=== PATIENT | female | born 1985 | race Two or more races ===

== ENCOUNTER 2017-03-21 12:58 | Emergency (ER) | payer MEDICAID ==
[2017-03-21 14:42] VITALS: BP 136/90
[2017-03-21] MEDS ORDERED: methylPREDNISolone SOD SUCC 125 MG/2 ML VL IM ONE (15:00)
[2017-03-21] MEDS ORDERED: cefTRIAXone SOD 1,000 MG VL IM ONE (15:00)
== END 2017-03-21 15:05 | disposition home or self-care (01) ==
LOC: ER 12:58
DX: J03.90 Acute tonsillitis, unspecified (principal); F12.10 Cannabis abuse, uncomplicated; E07.9 Disorder of thyroid, unspecified; Z79.899 Other long term (current) drug therapy
CPT/HCPCS: 96372; 99284; J0696; J2930

== ENCOUNTER 2017-06-14 00:38 | Emergency (ER) | payer MEDICAID ==
[~2017-06-14] VITALS: Ht 162.6 cm; Wt 82.6 kg
[2017-06-14 01:01] VITALS: BP 121/86
[2017-06-14] MEDS ORDERED: cefTRIAXone SOD 1,000 MG VL IM ONE (03:00)
[2017-06-14] MEDS ORDERED: methylPREDNISolone SOD SUCC 125 MG/2 ML VL IM ONE (03:00)
== END 2017-06-14 03:56 | disposition home or self-care (01) ==
LOC: ER 00:40
DX: J03.90 Acute tonsillitis, unspecified (principal); I10 Essential (primary) hypertension; Z88.6 Allergy status to analgesic agent; Z88.8 Allergy status to other drugs, medicaments and biological substances
CPT/HCPCS: 87070; 87880; 96372; 99284; J0696; J2930

== ENCOUNTER 2017-12-24 10:32 | Emergency (ER) | payer MEDICAID ==
[~2017-12-24] VITALS: Ht 162.6 cm; Wt 84.1 kg
[2017-12-24 10:43] VITALS: BP 119/77
== END 2017-12-24 11:50 | disposition home or self-care (01) ==
LOC: ER 10:32
DX: S66.912A Strain of unspecified muscle, fascia and tendon at wrist and hand level, left hand, initial encounter (principal); I10 Essential (primary) hypertension; E07.9 Disorder of thyroid, unspecified; W23.0XXA Caught, crushed, jammed, or pinched between moving objects, initial encounter; Y93.89 Activity, other specified; Y92.89 Other specified places as the place of occurrence of the external cause; Y99.8 Other external cause status; Z88.6 Allergy status to analgesic agent; Z88.8 Allergy status to other drugs, medicaments and biological substances; Z90.49 Acquired absence of other specified parts of digestive tract
CPT/HCPCS: 29125; 73130

== ENCOUNTER 2018-09-03 04:10 | Emergency (ER) | payer MEDICAID ==
[~2018-09-03] VITALS: Ht 162.6 cm; Wt 72.6 kg
[2018-09-03 04:31] VITALS: BP 125/75
[2018-09-03] MEDS ORDERED: KETOROLAC TROMETH 60MG/2ML VIAL IM ONE (07:00)
== END 2018-09-03 07:32 | disposition home or self-care (01) ==
LOC: ER 04:10
DX: S60.222A Contusion of left hand, initial encounter (principal); I10 Essential (primary) hypertension; E07.9 Disorder of thyroid, unspecified; F12.90 Cannabis use, unspecified, uncomplicated; Z88.8 Allergy status to other drugs, medicaments and biological substances; Z90.49 Acquired absence of other specified parts of digestive tract; W01.0XXA Fall on same level from slipping, tripping and stumbling without subsequent striking against object, initial encounter; Y93.89 Activity, other specified; Y99.8 Other external cause status; Y92.59 Other trade areas as the place of occurrence of the external cause
CPT/HCPCS: 73130; 96372; 99283; J1885

== ENCOUNTER 2019-05-09 00:20 | Emergency (ER) | payer MEDICAID ==
[~2019-05-09] VITALS: Ht 162.6 cm; Wt 86.4 kg
[2019-05-09 01:27] VITALS: BP 128/86
[2019-05-09] MEDS ORDERED: DexAMETHasone SOD PHOS 10MG/1ML VIAL INJ IM ONE (01:30)
[2019-05-09] MEDS ORDERED: cefTRIAXone SOD 1,000 MG VL IM ONE (01:30)
[2019-05-09] MEDS ORDERED: ACETAMINOPHEN/CODEINE#3 (300/30mg) TAB PO ONE (01:30)
== END 2019-05-09 02:21 | disposition home or self-care (01) ==
LOC: ER 00:24
DX: J06.9 Acute upper respiratory infection, unspecified (principal); F12.10 Cannabis abuse, uncomplicated; Z88.6 Allergy status to analgesic agent
CPT/HCPCS: 96372; 99283; J0696; J1100

== ENCOUNTER → 2019-12-31 | Emergency (ER) | payer MEDICAID ==
[~2019-12-31] VITALS: Ht 157.5 cm; Wt 86.2 kg
[2019-12-31 00:55] LABS: Basophils # (auto) 0.1 10 ^3/uL (0-0.2); Eosinophils # (auto) 0.1 10 ^3/uL (0-0.8); Lymphocytes # (auto) 3.8 10 ^3/uL (0.4-5.4)
[2019-12-31 00:57] LABS: Basophils % (auto) 0.9 % (0.0-2.0); Eosinophils % (auto) 1.6 % (0.0-7.0); Hematocrit 37.7 % (36.0-46.0); Hemoglobin 12.2 g/dL (12.2-16.2); Lymphocytes % (auto) 45.8 % (10.0-50.0); Mean Corpuscular Hemoglobin 26.5 pg (28.0-32.0); Mean Corpuscular Hgb Conc. 32.3 g/dL (32.0-36.0); Monocytes # (auto) 0.7 10 ^3/uL (0-1.3); Monocytes % (auto) 7.9 % (0.0-12.0); Neutrophils # (auto) 3.6 10 ^3/uL (1.6-8.6); Neutrophils % (auto) 43.8 % (37.0-80.0); Platelet Count (auto) 291 10^3/uL (140-450); Red Blood Cells 4.59 10^6/uL (4.0-5.20); White Blood Cell 8.3 10^3/uL (4.4-10.8)
[2019-12-31 01:10] LABS: INR 1.01 (0.9-1.15); Partial Thromboplastin Time 29.1 sec (23.64-32.05)
[2019-12-31 01:16] LABS: Alanine Aminotransferase 21 U/L (13-56); Albumin 3.7 g/dL (3.4-5.0); Anion Gap 7 (5-15); Aspartate Aminotransferase 15 U/L (15-37); BUN/Creatinine Ratio 21.4; Blood Urea Nitrogen 15 mg/dL (7-18); Calcium 8.7 mg/dL (8.5-10.1); Carbon Dioxide 24 mmol/L (21-32); Chloride 108 mmol/L (98-107); GFR African American 125 mL/min; GFR Non-African American 103 mL/min; Glucose 97 mg/dL (74-106); Potassium 3.7 mmol/L (3.5-5.1); Sodium 139 mmol/L (136-145)
[2019-12-31 01:33] LABS: Alkaline Phosphatase 99 U/L (45-117); Bilirubin, Total 0.1 mg/dL (0.2-1.0); Total Protein 7.7 g/dL (6.4-8.2)
[2019-12-31 02:50] VITALS: BP 120/81
== END | disposition home or self-care (01) ==
LOC: ER 00:17
DX: R07.89 Other chest pain (principal); K21.9 Gastro-esophageal reflux disease without esophagitis; I10 Essential (primary) hypertension; Z90.49 Acquired absence of other specified parts of digestive tract; Z88.8 Allergy status to other drugs, medicaments and biological substances
CPT/HCPCS: 36415; 71045; 80053; 83735; 83880; 84443; 84484; 84702; 85025; 85379; 85610; 85730; 93005

== ENCOUNTER 2020-03-09 09:14 | Emergency (ER) | payer MEDICAID ==
[~2020-03-09] VITALS: Ht 162.6 cm; Wt 88.5 kg
[2020-03-09] MEDS ORDERED: PANTOPRAZOLE 40 MG TAB PO ONE (09:30)
[2020-03-09 09:36] LABS: Basophils # (auto) 0.1 10 ^3/uL (0-0.2); Eosinophils # (auto) 0.1 10 ^3/uL (0-0.8); Hemoglobin 12.7 g/dL (12.2-16.2); Monocytes # (auto) 0.4 10 ^3/uL (0-1.3); Neutrophils # (auto) 4.8 10 ^3/uL (1.6-8.6); Nucleated Red Blood Cells % 0.1 %; Red Cell Distribution Width 16.3 % (11.8-14.3)
[2020-03-09 09:38] LABS: Eosinophils % (auto) 1.8 % (0.0-7.0); Hematocrit 39.1 % (36.0-46.0); Lymphocytes # (auto) 2.9 10 ^3/uL (0.4-5.4); Lymphocytes % (auto) 35.3 % (10.0-50.0); Mean Corpuscular Hemoglobin 26.6 pg (28.0-32.0); Mean Corpuscular Hgb Conc. 32.5 g/dL (32.0-36.0); Mean Corpuscular Volume 81.9 fL (80.0-100.0); Monocytes % (auto) 4.8 % (0.0-12.0); Neutrophils % (auto) 57.1 % (37.0-80.0); Platelet Count (auto) 344 10^3/uL (140-450); Red Blood Cells 4.77 10^6/uL (4.0-5.20); White Blood Cell 8.3 10^3/uL (4.4-10.8)
[2020-03-09 09:58] LABS: Albumin 4.2 g/dL (3.4-5.0); Calcium 9.3 mg/dL (8.5-10.1); Potassium 3.6 mmol/L (3.5-5.1)
[2020-03-09 10:04] LABS: BUN/Creatinine Ratio 15.7; Bilirubin, Total 0.2 mg/dL (0.2-1.0)
[2020-03-09 10:53] LABS: Urine Bacteria NONE SEEN /hpf (None Seen); Urine Blood 2+ /uL (Negative); Urine Mucus FEW (None Seen); Urine Specific Gravity 1.025 (1.001-1.035); Urine WBC 1 /hpf (0 - 5)
[2020-03-09 11:48] VITALS: BP 127/85
== END 2020-03-09 11:49 | disposition home or self-care (01) ==
LOC: ER 09:14
DX: K29.70 Gastritis, unspecified, without bleeding (principal); I10 Essential (primary) hypertension
CPT/HCPCS: 36415; 74176; 80053; 81001; 83690; 85025

== ENCOUNTER 2020-10-22 15:23 | Emergency (ER) | payer MEDICAID ==
[~2020-10-22] VITALS: Ht 154.9 cm; Wt 86.6 kg
[2020-10-22 15:29] VITALS: BP 136/76
[2020-10-22] MEDS ORDERED: IBUPROFEN 800 MG TAB PO ONE (16:45)
[2020-10-22] MEDS ORDERED: SILVER SULFADIAZINE 1 % TOPICAL CREAM 50GM TOP ONE (16:45)
== END 2020-10-22 17:27 | disposition home or self-care (01) ==
LOC: ER 15:23
DX: T24.212A Burn of second degree of left thigh, initial encounter (principal); I10 Essential (primary) hypertension; F12.10 Cannabis abuse, uncomplicated; Z87.440 Personal history of urinary (tract) infections; X12.XXXA Contact with other hot fluids, initial encounter; Y93.89 Activity, other specified; Y92.89 Other specified places as the place of occurrence of the external cause; Y99.8 Other external cause status
CPT/HCPCS: 16020

== ENCOUNTER 2022-07-31 09:55 | Emergency (ER) | payer MEDICAID ==
[~2022-07-31] VITALS: Ht 162.6 cm; Wt 86.3 kg
[2022-07-31 13:26] VITALS: BP 133/64
[2022-07-31] MEDS ORDERED: PROM1SOL4 PO (13:45)
[2022-07-31] MEDS ORDERED: ALBU108A5 IN (13:45)
[2022-07-31] MEDS ORDERED: MONT-8 PO (13:45)
[2022-07-31] MEDS ORDERED: IBUP600T28 PO (13:45)
== END 2022-07-31 13:51 | disposition home or self-care (01) ==
LOC: ER 09:55
DX: B34.9 Viral infection, unspecified (principal); I10 Essential (primary) hypertension; Z90.49 Acquired absence of other specified parts of digestive tract; Z88.8 Allergy status to other drugs, medicaments and biological substances; Z20.822 Contact with and (suspected) exposure to COVID-19
CPT/HCPCS: 36415; 87426; 87804

== ENCOUNTER 2023-04-14 12:21 | Emergency (ER) | payer MEDICAID ==
[~2023-04-14] VITALS: Ht 160 cm; Wt 81.8 kg
[~2023-04-14 12:21] MED LIST: ALBU108A5 IN; IBUP1TAB5 PO; MONT-8 PO; PROM1SOL4 PO
[2023-04-14 12:27] VITALS: BP 143/83; PULSE 98; RESP 18; O2SAT 98
[2023-04-14] MEDS ORDERED: IBUP-1454 PO (13:05)
[2023-04-14] MEDS ORDERED: AZIT500T66 PO (13:05)
== END 2023-04-14 13:19 | disposition home or self-care (01) ==
LOC: ER 12:21
DX: J03.90 Acute tonsillitis, unspecified (principal); I10 Essential (primary) hypertension; Z90.49 Acquired absence of other specified parts of digestive tract; Z79.1 Long term (current) use of non-steroidal anti-inflammatories (NSAID); Z79.2 Long term (current) use of antibiotics; Z79.899 Other long term (current) drug therapy; Z88.8 Allergy status to other drugs, medicaments and biological substances

== ENCOUNTER 2023-06-06 17:11 | Emergency (ER) | payer MEDICAID ==
[~2023-06-06] VITALS: Ht 162.6 cm; Wt 85.7 kg
[~2023-06-06 17:11] MED LIST changes: +AZIT500T66 PO; +IBUP-1454 PO
[2023-06-06 18:59] VITALS: BP 143/71; PULSE 93; RESP 18; TEMP 98.3; O2SAT 100
[2023-06-06] MEDS ORDERED: KETOROLAC TROMETH 30 MG/ML 1ML VIAL IM ONE (19:15)
[2023-06-06] MEDS ORDERED: IBUP-1455 PO (22:10)
== END 2023-06-06 22:31 | disposition home or self-care (01) ==
LOC: ER 17:11
DX: M79.662 Pain in left lower leg (principal); Z90.49 Acquired absence of other specified parts of digestive tract; Z98.890 Other specified postprocedural states; Z88.8 Allergy status to other drugs, medicaments and biological substances; Z79.1 Long term (current) use of non-steroidal anti-inflammatories (NSAID); Z79.899 Other long term (current) drug therapy; X58.XXXA Exposure to other specified factors, initial encounter; Y93.43 Activity, gymnastics; Y92.89 Other specified places as the place of occurrence of the external cause; Y99.8 Other external cause status
CPT/HCPCS: 73590; 96372; 99283; J1885

== ENCOUNTER 2023-11-06 14:29 | Emergency (ER) | payer MEDICAID ==
[~2023-11-06] VITALS: Ht 162.6 cm; Wt 81.8 kg
[~2023-11-06 14:29] MED LIST changes: +IBUP-1455 PO
[2023-11-06] MEDS ORDERED: NAP500T PO (15:48)
[2023-11-06 16:07] VITALS: BP 122/72; PULSE 80; RESP 16; TEMP 98.2; O2SAT 98
== END 2023-11-06 16:07 | disposition home or self-care (01) ==
LOC: ER 14:29
DX: S93.401A Sprain of unspecified ligament of right ankle, initial encounter (principal); Z88.6 Allergy status to analgesic agent; X50.1XXA Overexertion from prolonged static or awkward postures, initial encounter; Y93.89 Activity, other specified; Y92.89 Other specified places as the place of occurrence of the external cause; Y99.8 Other external cause status
CPT/HCPCS: 73610

== ENCOUNTER 2024-01-26 15:48 | Emergency (ER) | payer MEDICAID ==
[~2024-01-26] VITALS: Ht 162.6 cm; Wt 85.9 kg
[~2024-01-26 15:48] MED LIST changes: +NAP500T PO
[2024-01-26 17:05] LABS: Urine Bacteria None Seen /hpf (None Seen)
[2024-01-26 17:24] LABS: Urine Blood 3+ /uL (Negative); Urine Clarity Turbid (Clear); Urine Color Colorless (Yellow); Urine Mucus FEW (None Seen); Urine Protein, UAD TRACE (Negative); Urine Specific Gravity 1.018 (1.001-1.035); Urine Urobilinogen Normal (Negative); Urine WBC 27 /hpf (0 - 5); Urine pH 5.5 (5.0-9.0)
[2024-01-26 17:26] LABS: Basophils # (auto) 0 10 ^3/uL (0-0.2); Basophils % (auto) 0.2 % (0.0-2.0); Eosinophils # (auto) 0 10 ^3/uL (0-0.8); Eosinophils % (auto) 0.1 % (0.0-7.0); Hemoglobin 8.2 g/dL (12.2-16.2); Lymphocytes # (auto) 2.3 10 ^3/uL (0.4-5.4); Mean Corpuscular Volume 71.5 fL (80.0-100.0); Neutrophils % (auto) 73.9 % (37.0-80.0)
[2024-01-26 17:27] LABS: Hematocrit 27.5 % (36.0-46.0); Lymphocytes % (auto) 18.1 % (10.0-50.0); Mean Corpuscular Hemoglobin 21.3 pg (28.0-32.0); Mean Corpuscular Hgb Conc. 29.8 g/dL (32.0-36.0); Monocytes % (auto) 7.7 % (0.0-12.0); Neutrophils # (auto) 9.5 10 ^3/uL (1.6-8.6); Red Blood Cells 3.85 10^6/uL (4.0-5.20); Red Cell Distribution Width 17.5 % (11.8-14.3); White Blood Cell 12.8 10^3/uL (4.4-10.8)
[2024-01-26] MEDS: HYDROcodone-ACET 10/325MG TAB PO ONE (17:31)
[2024-01-26 17:32] LABS: Chloride 107 mmol/L (98-107); Potassium 3.3 mmol/L (3.5-5.1); Sodium 139 mmol/L (136-145)
[2024-01-26 17:33] LABS: Anion Gap 8 (5-15); Carbon Dioxide 24 mmol/L (20-30)
[2024-01-26 17:34] LABS: Calcium 8.8 mg/dL (8.7-10.4)
[2024-01-26 17:38] LABS: BUN/Creatinine Ratio 11.5 (10.0-20.0); Blood Urea Nitrogen 9 mg/dL (9-23); Glucose 98 mg/dL (74-106)
[2024-01-26] MEDS ORDERED: HYDR-4902 PO (18:59)
[2024-01-26 19:07] VITALS: BP 134/87; PULSE 86; RESP 17; TEMP 98.9; O2SAT 99
== END 2024-01-26 19:11 | disposition home or self-care (01) ==
LOC: ER 15:48
DX: G89.18 Other acute postprocedural pain (principal); R10.9 Unspecified abdominal pain; N39.0 Urinary tract infection, site not specified; D64.9 Anemia, unspecified; R50.9 Fever, unspecified; E66.01 Morbid (severe) obesity due to excess calories; Z68.32 Body mass index [BMI] 32.0-32.9, adult; Z98.890 Other specified postprocedural states
CPT/HCPCS: 36415; 80048; 81001; 81025; 85025

== ENCOUNTER 2024-02-11 07:11 | Inpatient (IN) | payer MEDICAID ==
[~2024-02-11] VITALS: Ht 162.6 cm; Wt 82.5 kg
[~2024-02-11 07:11] MED LIST changes: +HYDR-4902 PO
[2024-02-11 07:31] LABS: Urine Bacteria None Seen /hpf (None Seen)
[2024-02-11 07:42] LABS: Basophils # (auto) 0.1 10 ^3/uL (0-0.2); Eosinophils # (auto) 0.2 10 ^3/uL (0-0.8); Hemoglobin 8.4 g/dL (12.2-16.2); Monocytes # (auto) 0.4 10 ^3/uL (0-1.3); Nucleated Red Blood Cells % 0.1 %
[2024-02-11 07:43] LABS: Basophils % (auto) 0.7 % (0.0-2.0); Eosinophils % (auto) 2.5 % (0.0-7.0); Hematocrit 28.1 % (36.0-46.0); Lymphocytes # (auto) 2.4 10 ^3/uL (0.4-5.4); Lymphocytes % (auto) 34.5 % (10.0-50.0); Mean Corpuscular Hemoglobin 21.4 pg (28.0-32.0); Mean Corpuscular Volume 71.2 fL (80.0-100.0); Monocytes % (auto) 5.8 % (0.0-12.0); Neutrophils # (auto) 3.9 10 ^3/uL (1.6-8.6); Neutrophils % (auto) 56.5 % (37.0-80.0); Red Blood Cells 3.94 10^6/uL (4.0-5.20); Red Cell Distribution Width 16.6 % (11.8-14.3)
[2024-02-11 07:44] LABS: Urine Blood 2+ /uL (Negative); Urine Clarity Clear (Clear); Urine Color Light-Yellow (Yellow); Urine Mucus FEW (None Seen); Urine Protein, UAD Negative (Negative); Urine Specific Gravity 1.026 (1.001-1.035); Urine Urobilinogen Normal (Negative); Urine WBC 1 /hpf (0 - 5); Urine pH 5.5 (5.0-9.0)
[2024-02-11] MEDS: SODIUM CHLORIDE 0.9% 1,000 ML IV ONE (07:44)
[2024-02-11 07:52] LABS: Chloride 109 mmol/L (98-107); Potassium 3.3 mmol/L (3.5-5.1); Sodium 139 mmol/L (136-145)
[2024-02-11 07:53] LABS: Anion Gap 6 (5-15); Carbon Dioxide 24 mmol/L (20-30)
[2024-02-11 07:54] LABS: Calcium 9.3 mg/dL (8.5-10.1)
[2024-02-11 07:58] LABS: BUN/Creatinine Ratio 24.2 (10.0-20.0); Blood Urea Nitrogen 15 mg/dL (9-23); Glucose 103 mg/dL (74-106)
[2024-02-11] MEDS: KETOROLAC TROMETH 30 MG/ML 1ML VIAL IV ONE (08:21)
[2024-02-11] MEDS: POTASSIUM EFFERVESENT TAB 25 MEQ PO ONE (08:38)
[2024-02-11] MEDS ORDERED: ACETAMINOPHEN 325 MG TAB PO PRN ×2 (11:30)
[2024-02-11] MEDS: SODIUM CHLORIDE 0.9% 1,000 ML IV SCH (12:18)
[2024-02-11 12:28] VITALS: PULSE 88; RESP 16; O2SAT 99
[2024-02-11] MEDS: HYDROcodone-ACET 5/325MG TAB PO PRN (15:37)
[2024-02-11] MEDS: MORPHINE SULFATE INJ 2 MG/ml SYRG IV PRN (17:05)
[2024-02-11 18:30] VITALS: RESP 18
[2024-02-11 18:31] VITALS: BP 126/83; PULSE 80; RESP 18; TEMP 98.2
[2024-02-11 21:00] VITALS: BP 122/51; PULSE 75; RESP 18; TEMP 98.1; O2SAT 98
[2024-02-12] VITALS (8 sets, daily range): BP systolic 99–125; BP diastolic 54–85; PULSE 60–83; RESP 18–20; TEMP 97.9–98.6; O2SAT 97–100
[2024-02-12 06:38] LABS: Eosinophils # (auto) 0.2 10 ^3/uL (0-0.8); Mean Corpuscular Volume 70.1 fL (80.0-100.0); Monocytes # (auto) 0.4 10 ^3/uL (0-1.3); Neutrophils # (auto) 3.6 10 ^3/uL (1.6-8.6); White Blood Cell 6.5 10^3/uL (4.4-10.8)
[2024-02-12 06:43] LABS: Basophils # (auto) 0 10 ^3/uL (0-0.2); Basophils % (auto) 0.7 % (0.0-2.0); Eosinophils % (auto) 3.1 % (0.0-7.0); Hematocrit 25.5 % (36.0-46.0); Hemoglobin 7.8 g/dL (12.2-16.2); Lymphocytes # (auto) 2.3 10 ^3/uL (0.4-5.4); Lymphocytes % (auto) 34.7 % (10.0-50.0); Mean Corpuscular Hemoglobin 21.5 pg (28.0-32.0); Mean Corpuscular Hgb Conc. 30.7 g/dL (32.0-36.0); Monocytes % (auto) 6.1 % (0.0-12.0); Neutrophils % (auto) 55.4 % (37.0-80.0); Red Blood Cells 3.64 10^6/uL (4.0-5.20)
[2024-02-12 06:46] LABS: Chloride 112 mmol/L (98-107); Potassium 3.6 mmol/L (3.5-5.1); Sodium 139 mmol/L (136-145)
[2024-02-12 06:47] LABS: Anion Gap 6 (5-15); Carbon Dioxide 21 mmol/L (20-30)
[2024-02-12 06:52] LABS: BUN/Creatinine Ratio 15.5 (10.0-20.0); Blood Urea Nitrogen 9 mg/dL (9-23); Glucose 91 mg/dL (74-106)
[2024-02-12] MEDS: ONDANSETRON HCL 4 MG/2 ML VIAL IV PRN (11:09)
[2024-02-13 01:00] VITALS: BP 100/62; PULSE 71; RESP 20; TEMP 98.5; O2SAT 100
[2024-02-13 05:00] VITALS: BP 123/80; PULSE 77; RESP 20; TEMP 98.4; O2SAT 98
[2024-02-13 08:00] VITALS: BP 121/70; PULSE 68; RESP 18; TEMP 98.1; O2SAT 98
[2024-02-13] MEDS ORDERED: METH-1181 PO (08:53)
[2024-02-13] MEDS ORDERED: CIPR-173 PO (08:53)
[2024-02-13 09:00] VITALS: BP 121/70; PULSE 68; RESP 18; TEMP 98.1; O2SAT 98
[2024-02-13 11:43] VITALS: BP 121/70; PULSE 68; RESP 18; TEMP 36.7; O2SAT 98
[2024-02-14 09:45] LABS: Hepatitis B Surface Antigen Negative (Negative)
[2024-02-14 10:07] LABS: Hepatitis C Antibody Negative (Negative)
== END 2024-02-13 12:20 | disposition home or self-care (01) | DRG 351 ==
LOC: ER 07:11 → OVERFLOW 11:29 → CENTRAL 17:57
PROVIDERS: ADMIT Registered Nurse; ATTEND Family Medicine
DX: M62.838 Other muscle spasm (principal); E66.9 Obesity, unspecified; N39.0 Urinary tract infection, site not specified; E87.6 Hypokalemia; N20.0 Calculus of kidney; Z98.51 Tubal ligation status; Z83.3 Family history of diabetes mellitus; Z82.49 Family history of ischemic heart disease and other diseases of the circulatory system; Z90.49 Acquired absence of other specified parts of digestive tract; Z68.32 Body mass index [BMI] 32.0-32.9, adult
CPT/HCPCS: 36415; 74176; 76775; 80048; 81001; 84702; 85025; 86803; 87081; 87086; 87340; 96361; 96374; G0378; J1885; J2405

== ENCOUNTER 2025-02-07 08:42 | Emergency (ER) | payer MEDICAID ==
[~2025-02-07] VITALS: Ht 175.3 cm; Wt 80.4 kg
[~2025-02-07 08:42] MED LIST changes: +CIPR-173 PO; +METH-1181 PO
--- NOTE | 2025-02-07 09:03 | ED.PDOC ---
History of Present Illness HPI Comments 39-year-old female presents to the ER with prior surgical history of appendectomy, , tubal ligation and a chief complaint of chest pain/cough. Patient having right-sided chest pain for treatments but has been recently radiating to the back for the past two days. Denies chills, fever, N/V/D, SOB No other associated symptoms, modifiers, recent injuries or sick contacts present at this time. Time Seen by MD: 08:50 Primary Care Provider: Jessie Reviewed Notes: Nurses Notes, Medications, Allergies Allergies: Coded Allergies: Tramadol (Verified Allergy, Severe, 06/14/17) Metoclopramide (Verified Adverse Reaction, Mild, ANXIOUS, 06/14/17) User: Coreen Dillon RN Date: 10/14/14 10:11 Type: Emergency Department Notes reaction pt states i feel very anxious after getting that medicine.. dr cary notified verbal order received medicated pt with 25mg benadryl ivp PER ADMIN QUERIES REPORT 10/14/14 @1000, "FEELS ANXIOUS FROM REGLAN" Home Meds Active Scripts Methocarbamol (Methocarbamol) 500 Mg Tab, 500 MG PO TID, #30 TAB Prov:SAI BARRIOS MD 02/13/24 Ciprofloxacin Hcl (Cipro) 500 Mg Tab, 1 TAB PO BID, #20 TAB Prov:SAI BARRIOS MD 02/13/24 Hydrocodone-Acetaminophen (Hydrocodone Bitartrate/AC 5-325 mg) 1 Tab Tab, 1 TAB PO Q6HP PRN, #20 TAB Prov:JUVENAL MOREIRA PAC 01/26/24 Naproxen (NAPROSYN TABLET) 500 Mg Tb, 1 TAB PO BID for 14 Days, #28 TAB 0 Refills Prov:ERI CEDEÑO ASSOCIATE GENETICS PROFESSOR 11/06/23 Ibuprofen Micronized (Ibuprofen) 800 Mg Tab, 800 MG PO Q6HPRN PRN, #30 TAB 0 Refills Prov:TONAROBERT Narinder MAHER 06/06/23 Ibuprofen (Ibuprofen) 600 Mg Tab, 1 TAB PO TID, #24 TAB Prov:JONO AL 04/14/23 Azithromycin (Azithromycin) 500 Mg Tab, 1 TAB PO DAILY, #5 TAB Prov:JONO AL 04/14/23 Albuterol Sulfate (Albuterol Sulfate Hfa) 108 Mcg/Act Aer, 108 MCG IN TID PRN, #1 AER Prov:JEANNIE WAYNE 07/31/22 Montelukast Sodium (MONTELUKAST SODIUM) 10 Mg Tab, 1 TAB PO DAILY, #30 TAB 5 Refills Prov:JEANNIE WAYNE 07/31/22 Promethazine-Dm (Promethazine Dm 6.25-15 mg/5Ml) 1 Evelia Evelia, 5 ML PO TID PRN, #240 ML Prov:JEANNIE WAYNE 07/31/22 Ibuprofen Micronized (Ibuprofen) 600 Mg Tab, 600 MG PO TID PRN, #30 TAB Prov:JEANNIE WAYNE 07/31/22 Information Source: Patient Mode of Arrival: Ambulatory Severity: Moderate Timing: Months Duration: Since onset Prehospital treatment: None Past Medical History PAST MEDICAL HISTORY: Denies Surgical History: Appendectomy, , Tubal Ligation CUFF SETTER LOCKSTITCH History: No Pertinent CUFF SETTER LOCKSTITCH History Family History Family History: Reviewed,noncontributory to illness, Unknown, Family hx of heart crescencio Social History Smoker: Non-Smoker Alcohol: Unknown Drugs: Denies Drug Use Lives In: Home Constitutional: denies: chills, diaphoresis, fatigue, fever, malaise, sweats, weakness, others EENTM: denies: blurred vision, double vision, ear bleeding, ear discharge, ear drainage, ear pain, ear ringing, eye pain, eye redness, hearing loss, mouth pain, mouth swelling, nasal discharge, nose bleeding, nose congestion, nose pain, photophobia, tearing, throat pain, throat swelling, voice changes, others Respiratory: reports: cough; denies: hemoptysis, orthopnea, SOB at rest, shortness of breath, SOB with excertion, stridor, wheezing, others Cardiovascular: reports: chest pain; denies: dizzy spells, diaphoresis, Dyspnea on exertion, edema, irregular heart beat, left arm pain, lightheadedness, palpitations, PND, syncope, others Gastrointestinal: denies: abdomen distended, abdominal pain, blood streaked bowels, constipated, diarrhea, dysphagia, difficulty swallowing, hematemesis, melena, nausea, poor appetite, poor fluid intake, rectal bleeding, rectal pain, vomiting, others Genitourinary: denies: abnormal vagina bleeding, burning, dyspareunia, dysuria, flank pain, frequency, hematuria, incontinence, pain, , vagina di scharge, urgency, others Neurological: denies: dizziness, fainting, headache, left sided numbness, left sided weakness, numbness, paresthesia, pre-existing deficit, right sided numbness, right sided weakness, seizure, speech problems, tingling, tremors, weakness, others Musculoskeletal: reports: back pain; denies: gout, joint pain, joint swelling, muscle pain, muscle stiffness, neck pain, others Integumetry: denies: bruises, change in color, change in hair/nails, dryness, laceration, lesions, lumps, rash, wounds, others Allergic/Immunocompromised: denies: Difficulty Healing, Frequent Infections, Hives, Itching, others Hematologic/Lymphatic: denies: anemia, blood clots, easy bleeding, easy bruising, swollen glands, others Endocrine: denies: excessive hunger, excessive sweating, excessive thirst, excessive urination, flushing, intolerance to cold, intolerance to heat, unexplained weight gain, unexplained weight loss, others Psychiatric: denies: anxiety, bipolar disorder, depression, hopeless, panic disorder, schizophrenia, sleepless, suicidal, others All Other Systems: Reviewed and Negative Physical Exam General Appearance: Moderate Distress, Normal HEENT: Normal ENT Inspection, Pharynx Normal, TMs Normal Neck: Full Range of Motion, Non-Tender, Normal, Normal Inspection Respiratory: Chest Non-Tender, Lungs Clear, No Accessory Muscle Use, No Respir atory Distress, Normal Breath Sounds Cardiovascular: No Edema, No JVD, No Murmur, No Gallop, Normal Peripheral Pulses, Regular Rate/Rhythm Breast Exam: Deferred Gastrointestinal: No Organomegaly, Non Tender, No Pulsatile Mass, Normal Bowel Sounds, Soft Genitalia: Deferred Pelvic: Deferred Rectal: Deferred Extremities: No calf tenderness, Normal capillary refill, Normal inspection, Normal range of motion, Non-tender, No pedal edema Musculoskeletal : Apperance: Normal Neurologic: Alert, office manager receptionist II-XII nml as Tested, No Motor Deficits, Normal Affect, Normal Mood, No Sensory Deficits Cerebellar Function: Normal Reflexes: Normal Skin: Dry, Normal Color, Warm Peripheral Pulses: 3+ Radial (R), 3+ Radial (L) Lymphatic: No Adenopathy Was a procedure done? Was a procedure done?: No EKG EKG : Pulse Rate (adult): 72 Orrum: Normal Cardiac Rhythm: NSR Block: None Hypertrophy: None ST: Normal Differential Dx Considerations may include: Musculoskeletal pain X-Ray, Labs, Meds, VS Vital Signs Date Time Temp Pulse Resp B/P (MAP) Pulse Ox O2 Delivery O2 Flow Rate FiO2 02/07/25 10:23 97.8 69 18 140/91 (107) 100 97.8 02/07/25 10:23 69 18 100 Room Air 02/07/25 09:14 98.0 76 18 125/56 (79) 98 98.0 02/07/25 09:03 72 02/07/25 08:57 72 Lab Test 02/07/25 09:00 Range/Units D-Dimer, Quantitative < 0.19 0.0-0.49 mg/L FEU Troponin I High Sensitivity < 3 L </=34 ng/L [place] [id number] Ph: [phone] DIAGNOSTIC IMAGING Diagnostic Imaging Report : [id number] Signed PATIENT: YVONNE LEON ACCT: [id number] UNIT: [id number] : 1985 LOC: ER ROOM / BED: / AGE / SEX: 39 / F ADM STATUS: REG ER SERVICE 0900 ORDERING PHYSICIAN: TRAVON MAZA MD PROCEDURE(s): CXR1 - CHEST XRAY 1 VIEW REASON: CP ORDER NUMBER(s): [id number], ACCESSION NUMBER(s): [id number] XY CHEST XRAY 1 VIEW, HISTORY: CP COMPARISON: CHEST PORTABLE on DOS: 12/31/19 CHEST PORTABLE on DOS: 12/31/19 TECHNICAL DATA: 1 view of the chest was obtained. FINDINGS: Lines and tubes: None Cardiomediastinal silhouette: normal Pulmonary vasculature: normal Lung expansion: normal Lung airspace: normal Lung interstitium: normal Pleura: normal Pneumothorax: no Bones: Unremarkable Other: no IMPRESSION: No acute intrathoracic abnormality. ATED BY: UNRULY FLORES MD DICTATED DATE/TIME: 02/07/25923 SIGNED BY: UNRULY FLORES MD SIGNED DATE/TIME: 02/07/25923 CC: Patient alert. Complaining of chest discomfort. Chest x-ray reviewed does not show any acute process. Vitals stable. EKG reviewed does not show any acute changes. Cardiac marker within normal limits. D-dimer within normal limits. Was given prescription of Motrin. Explained to the patient that is musculoskeletal. Was told to follow up with her primary care physician. Was told to come back if there is any problem. Time of 1ST Reevaluation: 09:20 Reevaluation 1ST: Improved Time of 2ND Reevaluation: 11:33 Reevaluation 2ND: Improved Patient Education/Counseling: Diagnosis, Treatment, Prognosis Family Education/Counseling: Diagnosis, Treatment, Prognosis Departure 1 Departure Time of Disposition: 11:34 Impression: Primary Impression: Musculoskeletal chest pain Additional Impression: Pleurisy Disposition: 01 HOME / SELF CARE / HOMELESS Condition: Good e-Prescriptions Ibuprofen Micronized (MOTRIN TABLET) 600 Mg Tb 600 MG PO TID PRN for 3 Days, #9 TAB *Black box warning-NSAIDS can increase risk of MT & hypertension, GI irritation, ulceration, bleed, perferation. Do not use post cardiac surgery. Use short duration/lowest effective dose. Prov: TRAVON MAZA MD 02/07/25 Discharged With: Self Critical Care Note Critical Care Time?: No Stability Stability form required: No I personally scribed for TRAVON MAZA MD ([email or web address]) on 02/07/25 at 09:03. Electronically submitted by Amador Aguilera ([email or web address]). I personally scribed for TRAVON MAZA MD ([email or web address]) on 02/07/25 at 10:04. Electronically submitted by Amador Aguilera ([email or web address]). TRAVON MAZA MD February 07, 2025 09:03
--- NOTE | 2025-02-07 09:26 | DVH ---
XY CHEST XRAY 1 VIEW, HISTORY: CP COMPARISON: CHEST PORTABLE on DOS: 12/31/19 CHEST PORTABLE on DOS: 12/31/19 TECHNICAL DATA: 1 view of the chest was obtained. FINDINGS: Lines and tubes: None Cardiomediastinal silhouette: normal Pulmonary vasculature: normal Lung expansion: normal Lung airspace: normal Lung interstitium: normal Pleura: normal Pneumothorax: no Bones: Unremarkable Other: no IMPRESSION: No acute intrathoracic abnormality.
[2025-02-07 10:23] VITALS: BP 140/91; PULSE 69; RESP 18; TEMP 97.8; O2SAT 100
[2025-02-07] MEDS ORDERED: IBU600T PO (11:35)
--- NOTE | 2025-02-08 07:52 | ECG ---
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
== END 2025-02-07 12:17 | disposition home or self-care (01) ==
LOC: ER 08:42
DX: R09.1 Pleurisy (principal); M79.18 Myalgia, other site; Z90.49 Acquired absence of other specified parts of digestive tract; Z98.51 Tubal ligation status; Z88.5 Allergy status to narcotic agent; Z88.8 Allergy status to other drugs, medicaments and biological substances
CPT/HCPCS: 36415; 71045; 84484; 85379; 93005

== ENCOUNTER 2025-04-02 21:13 | Emergency (ER) | payer MEDICAID, OTHER ==
[~2025-04-02] VITALS: Ht 162.6 cm; Wt 81.7 kg
[~2025-04-02 21:13] MED LIST changes: +IBU600T PO
--- NOTE | 2025-04-02 22:06 | ED.PDOC ---
Back pain HPI HPI Comments PATIENT C/O RIGHT WRIST PAIN S/P HOLDING A KID DOWN WHILE HE WAS GETTING DENTAL WORK DONE YESTERDAY. NO DEFORMITIES NOTED DENIES NUMBNESS/WEAKNESS Time Seen by MD: 21:23 Primary Care Provider: Jessie Oliveira Notes: Nurses Notes, Medications, Allergies Allergies: Coded Allergies: Tramadol (Verified Allergy, Severe, 06/14/17) Metoclopramide (Verified Adverse Reaction, Mild, ANXIOUS, 06/14/17) User: Coreen Dillon RN Date: 10/14/14 10:11 Type: Emergency Department Notes reaction pt states i feel very anxious after getting that medicine.. dr cary notified verbal order received medicated pt with 25mg benadryl ivp PER ADMIN QUERIES REPORT 10/14/14 @1000, "FEELS ANXIOUS FROM REGLAN" Home Meds Active Scripts Ibuprofen Micronized (MOTRIN TABLET) 600 Mg Tb, 600 MG PO TID PRN for 3 Days, #9 TAB *Black box warning-NSAIDS can increase risk of MN & hypertension, GI irritation, ulceration, bleed, perferation. Do not use post cardiac surgery. Use short duration/lowest effective dose. Prov:TRAVON MAZA MD 02/07/25 Methocarbamol (Methocarbamol) 500 Mg Tab, 500 MG PO TID, #30 TAB Prov:SAI BARRIOS MD 02/13/24 Ciprofloxacin Hcl (Cipro) 500 Mg Tab, 1 TAB PO BID, #20 TAB Prov:SAI BARRIOS MD 02/13/24 Hydrocodone-Acetaminophen (Hydrocodone Bitartrate/AC 5-325 mg) 1 Tab Tab, 1 TAB PO Q6HP PRN, #20 TAB Prov:JUVENAL MOREIRA PAC 01/26/24 Naproxen (NAPROSYN TABLET) 500 Mg Tb, 1 TAB PO BID for 14 Days, #28 TAB 0 Refills Prov:ERI CEDEÑO CHLORINATION OPERATOR 11/06/23 Ibuprofen Micronized (Ibuprofen) 800 Mg Tab, 800 MG PO Q6HPRN PRN, #30 TAB 0 Refills Prov:ROBERT CARBONE 06/06/23 Ibuprofen (Ibuprofen) 600 Mg Tab, 1 TAB PO TID, #24 TAB Prov:JONO AL 04/14/23 Azithromycin (Azithromycin) 500 Mg Tab, 1 TAB PO DAILY, #5 TAB Prov:JONO AL 04/14/23 Albuterol Sulfate (Albuterol Sulfate Hfa) 108 Mcg/Act Aer, 108 MCG IN TID PRN, #1 AER Prov:JEANNIE WAYNE 07/31/22 Montelukast Sodium (MONTELUKAST SODIUM) 10 Mg Tab, 1 TAB PO DAILY, #30 TAB 5 Refills Prov:JEANNIE WAYNE 07/31/22 Promethazine-Dm (Promethazine Dm 6.25-15 mg/5Ml) 1 Evelia Evleia, 5 ML PO TID PRN, #240 ML Prov:JEANNIE WAYNE 07/31/22 Ibuprofen Micronized (Ibuprofen) 600 Mg Tab, 600 MG PO TID PRN, #30 TAB Prov:JEANNIE WAYNE 07/31/22 Past Medical History PAST MEDICAL HISTORY: Denies Surgical History: Appendectomy, , Tubal Ligation AUTOMATIC FABRIC CUTTER History: No Pertinent AUTOMATIC FABRIC CUTTER History Family History Family History: Reviewed,noncontributory to illness, Unknown, Family hx of heart crescencio Social History Smoker: Non-Smoker Alcohol: Unknown Drugs: Denies Drug Use Lives In: Home Constitutional: denies: chills, diaphoresis, fatigue, fever, malaise, sweats, weakness, others EENTM: denies: blurred vision, double vision, ear bleeding, ear discharge, ear drainage, ear pain, ear ringing, eye pain, eye redness, hearing loss, mouth pain, mouth swelling, nasal discharge, nose bleeding, nose congestion, nose pain, photophobia, tearing, throat pain, throat swelling, voice changes, others Respiratory: denies: cough, hemoptysis, orthopnea, SOB at rest, shortness of breath, SOB with excertion, stridor, wheezing, others Cardiovascular: denies: chest pain, dizzy spells, diaphoresis, Dyspnea on exertion, edema, irregular heart beat, left arm pain, lightheadedness, palpitations, PND, syncope, others Gastrointestinal: denies: abdomen distended, abdominal pain, blood streaked bowels, constipated, diarrhea, dysphagia, difficulty swallowing, hematemesis, melena, nausea, poor appetite, poor fluid intake, rectal bleeding, rectal pain, vomiting, others Genitourinary: denies: abnormal vagina bleeding, burning, dyspareunia, dysuria, flank pain, frequency, hematuria, incontinence, pain, , vagina discha rge, urgency, others Neurological: denies: dizziness, fainting, headache, left sided numbness, left sided weakness, numbness, paresthesia, pre-existing deficit, right sided numbness, right sided weakness, seizure, speech problems, tingling, tremors, weakness, others Musculoskeletal: reports: joint pain, joint swelling, muscle pain, muscle stiffness; denies: back pain, gout, neck pain, others Integumetry: denies: bruises, change in color, change in hair/nails, dryness, laceration, lesions, lumps, rash, wounds, others Allergic/Immunocompromised: denies: Difficulty Healing, Frequent Infections, Hives, Itching, others Hematologic/Lymphatic: denies: anemia, blood clots, easy bleeding, easy bruising, swollen glands, others Endocrine: denies: excessive hunger, excessive sweating, excessive thirst, excessive urination, flushing, intolerance to cold, intolerance to heat, unexplained weight gain, unexplained weight loss, others Psychiatric: denies: anxiety, bipolar disorder, depression, hopeless, panic disorder, schizophrenia, sleepless, suicidal, others Physical Exam General Appearance: No Apparent Distress, Normal HEENT: Normal ENT Inspection, Pharynx Normal Neck: Full Range of Motion, Non-Tender, Normal, Normal Inspection Respiratory: Lungs Clear, No Respiratory Distress, Normal Breath Sounds Cardiovascular: No Edema, No Murmur, Normal Peripheral Pulses, Regular Rate/Rhythm Breast Exam: Deferred Gastrointestinal: Non Tender, Soft Genitalia: Deferred Pelvic: Deferred Rectal: Deferred Extremities: No calf tenderness, Normal capillary refill, Normal range of motion Musculoskeletal : Location: Right Extremity Location: Wrist (MODERATE TENDERNESS ON PALPATION ABOUT THE WRIST STRENGTH SENSORY MOTION INTACT TRACE EDEMA POSITIVE RADIAL PULSE) Apperance: Normal Neurologic: Alert, No Motor Deficits, Normal Affect, Normal Mood, No Sensory Deficits Cerebellar Function: Normal Reflexes: Normal Skin: Dry, Normal Color, Warm Lymphatic: No Adenopathy Was a procedure done? Was a procedure done?: No Back Pain Differential Dx Differential Diagnosis: Fracture, Musculoskeletal Pain X-Ray, Labs, Meds, VS Vital Signs Date Time Temp Pulse Resp B/P (MAP) Pulse Ox O2 Delivery O2 Flow Rate FiO2 04/02/25 22:11 97.4 96 18 141/99 (113) 99 97.4 X-Ray, Labs, Meds, VS Comment RIGHT WRIST X-RAY SHOWS NO ACUTE FRACTURES OSSEOUS LESIONS OR DISLOCATIONS. LIKELY WRIST SPRAIN. PATIENT GIVEN TORADOL 60 MG IM REPORTS IMPROVEMENT IN PAIN FUNCTION REQUESTING DISCHARGE AT THIS TIME. SCRIPT TRIAL OF IBUPROFEN ADVISED TAKE MEDICATIONS PRESCRIBED SIDE EFFECTS DISCUSSED. PATIENT PLACED IN A SLING AND A WRIST SPLINT FOR COMFORT. ADVISED TO FOLLOW UP WITH HER PCP IN 2-3 DAYS NECESSARY CONSIDER FURTHER IMAGING SUCH MRI IF SYMPTOMS PERSIST. ER RETURN PRECAUTIONS GIVEN PATIENT INDICATES UNDERSTANDING AGREES WITH DISCHARGE PLAN OF CARE. Time of 1ST Reevaluation: 21:23 Reevaluation 1ST: Unchanged Time of 2ND Reevaluation: 22:48 Reevaluation 2ND: Improved Patient Education/Counseling: Diagnosis, Treatment, Prognosis, Need For Follow Up Family Education/Counseling: No Family Present SEPSIS Sepsis Screen Physician Orders R Wrist 3+ View Xray (04/02/25 22:08) Apply Sling (04/02/25 22:08) Apply Ice To Affected Area (04/02/25 22:08) Splints (04/02/25 ) Vital Signs Date Time Temp Pulse Resp B/P (MAP) Pulse Ox O2 Delivery O2 Flow Rate FiO2 04/02/25 22:11 97.4 96 18 141/99 (113) 99 97.4 Departure 1 Departure Time of Disposition: 22:46 Impression: Primary Impression: Sprain of right wrist Qualified Codes: S63.501A - Unspecified sprain of right wrist, initial encounter Disposition: HOME / SELF CARE / HOMELESS Condition: Stable e-Prescriptions Ibuprofen Micronized (Ibuprofen) 600 Mg Tab 600 MG PO TID PRN for 5 Days, #15 TAB Prov: CORKY ARMANDO 04/02/25 Discharged With: Self Critical Care Note Critical Care Time?: No Stability Stability form required: No PRABHA,CORKY [facility] Apr 02, 2025 22:06
--- NOTE | 2025-04-02 22:41 | DVH ---
CLINICAL INDICATION: INJIURY AND PAIN TECHNIQUE: 3 radiographic views of the right wrist were obtained. Comparison: None FINDINGS/IMPRESSION: Bony alignment is normal. There are no fractures or dislocations. There are no radiopaque foreign bodies. HS:Y
[2025-04-02] MEDS ORDERED: IBUP1TAB5 PO (22:48)
[2025-04-02] MEDS: KETOROLAC TROMETH 60MG/2ML VIAL IM ONE (22:58)
[2025-04-02 23:00] VITALS: BP 138/66; PULSE 66; RESP 18; TEMP 97.9; O2SAT 99
== END 2025-04-02 23:13 | disposition home or self-care (01) ==
LOC: ER 21:13
DX: S63.501A Unspecified sprain of right wrist, initial encounter (principal); Z90.49 Acquired absence of other specified parts of digestive tract; Z98.890 Other specified postprocedural states; Z98.51 Tubal ligation status; Z88.8 Allergy status to other drugs, medicaments and biological substances; Z88.5 Allergy status to narcotic agent; Z79.899 Other long term (current) drug therapy; Z79.1 Long term (current) use of non-steroidal anti-inflammatories (NSAID); Y33.XXXA Other specified events, undetermined intent, initial encounter; Y93.89 Activity, other specified; Y92.238 Other place in hospital as the place of occurrence of the external cause; Y99.8 Other external cause status
CPT/HCPCS: 29125; 73110; 96372; 99283; J1885